=== PATIENT | male | born 1930 | race Caucasian/White ===

== ENCOUNTER → 2016-10-13 | Outpatient (REF) | payer MEDICARE ==
[~2016-10-13] MED LIST: AMN100CCIP PO; ASP81CT PO; ASPI325T4 PO; AZTH250C PO; CALC500T35 PO; CALC600T12 PO; CARB15DR74 OU; CARB1TAB PO; CARB1TAB40 PO; CARV6.25 PO; DUONEB 0.5 MG-33 ML IH; FURO20TA4 PO; KETO5DRO2 OU; LEVO200T9 PO; LISI-594 PO; MELA3TAB34 PO; MIRA25TA PO; MULT1CAP27 PO; OMEP20TA PO; POLY1DRO OU; QUET50TA3 PO; ROSU40TA PO; SIMV20TA PO; TR1C15 EXT
[2016-10-13 18:48] LABS: BASOPHILS % (AUTO) 0 % (0-2); EOSINOPHILS # (AUTO) 0.2 10^3uL; EOSINOPHILS % (AUTO) 3 % (0-4); LYMPHOCYTES # (AUTO) 1.4 X10^3; MEAN CORPUSCULAR HGB CONC 33.9 g/dL (31.0-37.0); MEAN PLATELET VOLUME 11.4 FL (6.0-9.5); MONOCYTES # (AUTO) 0.6 X10^3; MONOCYTES % (AUTO) 9 % (3-11); NEUTROPHILS # (AUTO) 4.7 X10^3; NEUTROPHILS % (AUTO) 67 % (51-67); PLATELET COUNT 183 10^3uL (150-450); WHITE BLOOD COUNT 6.93 10^3uL (4.0-11.0)
[2016-10-13 19:08] LABS: MEAN CORPUSCULAR HEMOGLOBIN 33.2 PG (26.0-34.0); MEAN CORPUSCULAR VOLUME 98 FL (80-100)
[2016-10-13 19:10] LABS: ANION GAP 21.6 MEQ/L (3-15)
[2016-10-13 19:28] LABS: BILIRUBIN,URINE Negative (Negative); CLARITY,URINE Clear; COLOR,URINE Yellow; GLUCOSE, URINE (UA) Negative (Negative); LEUKOCYTE ESTERASE ,URINE Negative (Negative); UROBILINOGEN,URINE 0.2 mg/dL (0.2-1.0)
== END ==
LOC: LAB 18:20
PROVIDERS: ATTEND Family Medicine
DX: D64.9 Anemia, unspecified (principal); I50.9 Heart failure, unspecified; N39.0 Urinary tract infection, site not specified
CPT/HCPCS: 80048; 81003; 83880; 85025

== ENCOUNTER → 2016-11-16 | Outpatient (CLI) | payer MEDICARE ==
[2016-11-16 15:50] LABS: BASOPHILS % (AUTO) 0 % (0-2); EOSINOPHILS # (AUTO) 0.1 10^3uL; EOSINOPHILS % (AUTO) 2 % (0-4); LYMPHOCYTES # (AUTO) 1.1 X10^3; MEAN CORPUSCULAR HGB CONC 33.9 g/dL (31.0-37.0); MEAN CORPUSCULAR VOLUME 96 FL (80-100); MEAN PLATELET VOLUME 10.7 FL (6.0-9.5); MONOCYTES # (AUTO) 0.6 X10^3; MONOCYTES % (AUTO) 7 % (3-11); NEUTROPHILS # (AUTO) 6.6 X10^3; NEUTROPHILS % (AUTO) 78 % (51-67); PLATELET COUNT 177 10^3uL (150-450)
[2016-11-16 15:54] LABS: MEAN CORPUSCULAR HEMOGLOBIN 32.7 PG (26.0-34.0)
[2016-11-16 16:04] LABS: ANION GAP 18.9 MEQ/L (3-15)
[2016-11-16 16:09] LABS: INFLUENZA VIRUS TYPE A ANTIBOD Negative (NEGATIVE); INFLUENZA VIRUS TYPE B ANTIBOD Negative (NEGATIVE)
== END ==
LOC: LAB 15:15
PROVIDERS: ATTEND Family Medicine
DX: R06.02 Shortness of breath (principal); I10 Essential (primary) hypertension
CPT/HCPCS: 36415; 71020; 80048; 83880; 85025; 87502